=== PATIENT | female | born 1960 | race Caucasian/White ===

== ENCOUNTER 2023-12-21 08:10 | Outpatient (OUT) | payer MEDICARE, SELFPAY ==
[2023-12-21 09:05] LABS: Basophils Absolute Auto 0.1 10^3/uL (0.0-0.1); Eosinophils Absolute Auto 0.2 10^3/uL (0.0-0.7); Eosinophils Percent Auto 2.2 % (0.9-7.0); Hematocrit 39.6 % (36.0-48.0); Hemoglobin 12.6 g/dL (12.0-16.0); Immature Granulocytes Abs Auto 0.03 10^3/uL (0.00-0.03); Immature Granulocytes Pct Auto 0.4 % (0.0-0.5); Lymphocytes Absolute Auto 1.5 10^3/uL (1.2-3.8); Lymphocytes Percent Auto 19.3 % (20.5-60.0); Mean Corpuscular HGB Conc 31.8 g/dL (29.9-35.2); Mean Platelet Volume 9.3 fL (9.5-13.5); Monocytes Absolute Auto 0.6 10^3/uL (0.3-0.8); Monocytes Percent Auto 7.1 % (1.7-12.0); Neutrophils Absolute Auto 5.4 10^3/uL (1.4-6.5); Platelet Count 345 10^3/uL (150-450); Red Cell Distribution Width 13.8 % (11.0-15.0); White Blood Count 7.7 10^3/uL (4.0-11.0)
[2023-12-21 09:23] LABS: Anion Gap 12.7; BUN Creatinine Ratio 11.2; Calcium 8.9 mg/dL (8.5-10.1); Carbon Dioxide 27.5 mmol/L (21.0-32.0); Chloride 103 mmol/L (98-107); Estimated GFR (African America 57 (>=60); Estimated GFR (Non-African Ame 47 (>=60); Glucose 220 mg/dL (74-106); Potassium 4.2 mmol/L (3.5-5.1); Sodium 139 mmol/L (136-145)
== END 2023-12-21 08:11 | disposition home or self-care (01) ==
LOC: LAB 08:16
PROVIDERS: Family Provider Family Medicine; PCP Nurse Practitioner Family; Visit Provider Internal Medicine Cardiovascular Disease
DX: R00.1 Bradycardia, unspecified (principal)
CPT/HCPCS: 36415; 80048; 85025

== ENCOUNTER 2023-12-27 10:35 | Outpatient (OUT) | payer MEDICARE, SELFPAY ==
--- NOTE | 2023-12-27 10:40 | XR_ITS ---
The [address] [address] Patient Name: MATHEW DE LEON MRN: [id number] date: 1960 Sex: F Assigned Patient Location: [facility] Current Patient Location: [facility] Accession/Order Number: [id number] Exam Date: 12/27/2023 10:43 Report Date: 12/27/2023 11:58 At the request of: MARGARITA EL Procedure: XR chest 2V PROCEDURE: XR chest 2V DATE: 12/27/2023 9:43 AM CDT COMPARISONS: 11/01/2015 CLINICAL INDICATION: 63 years Female Bradycardia R00.1 FINDINGS: The cardiomediastinal silhouette and pulmonary vasculature are within normal limits. The lungs are clear. There is no evidence of pleural effusion or pneumothorax. On today's exam electronic cardiac device overlies the left chest. Wires extend over the heart. This device appears to be in good position in this projection. XR/XR chest 2V IMPRESSION: Chest radiograph is within normal limits. Electronically authenticated by: ADAN DAMON Date: 12/27/2023 11:58
== END 2023-12-27 10:36 | disposition home or self-care (01) ==
LOC: RAD 10:36
PROVIDERS: Family Provider Family Medicine; PCP Nurse Practitioner Family; Visit Provider Internal Medicine Cardiovascular Disease
DX: R00.1 Bradycardia, unspecified (principal)
CPT/HCPCS: 71046